=== PATIENT | female | born 1940 | race Caucasian/White ===

== ENCOUNTER → 2019-03-25 | Outpatient (CLI) | payer OTHER | LOC: ULTRA 08:01 | DX: N28.1 Cyst of kidney, acquired (principal); M54.9 Dorsalgia, unspecified ==

== ENCOUNTER → 2021-01-05 | Outpatient (CLI) | payer OTHER | LOC: MRI 14:01 | PROVIDERS: ATTEND Nurse Practitioner | DX: M47.812 Spondylosis without myelopathy or radiculopathy, cervical region (principal); M48.02 Spinal stenosis, cervical region ==